=== PATIENT | male | born 1950 | race Caucasian/White ===

== ENCOUNTER 2017-01-28 07:09 | Emergency (ER) | payer MEDICARE ==
[2017-01-28] MEDS ORDERED: MORPHINE SULFATE 4 MG/ML SYRINGE IV STA (07:48)
[2017-01-28] MEDS ORDERED: SODIUM CHLORIDE 0.9% 1,000 ML IV STA ×2 (07:48→10:57)
[2017-01-28] MEDS ORDERED: ACETAMINOPHEN IV (For NPO) 1,000 MG in EMPTY BAG 1 BAG IVPB STA (07:49)
[2017-01-28] MEDS ORDERED: PANTOPRAZOLE 40 MG/10 ML VIAL IVP STA (07:49)
[2017-01-28 08:35] LABS: Basophils % (A) 1 %; CH 34.9; CHCM 35.6; Eosinophils # (A) 0.1 k/uL (0-0.7); Eosinophils % (A) 1 %; HCT 46.8 % (39.0-53.0); HDW 2.62; HGB 16.1 gm/dL (13.0-17.5); Luc # (Auto) 0.25; Luc % (Auto) 4; Lymphocytes # (A) 0.9 k/uL (1.0-4.8); Lymphocytes % (A) 15 %; MCHC 34.5 g/dL (31.0-37.0); MCV 98.5 fL (80.0-100.0); Mean Platelet Volume 7.2; Monocytes # (A) 0.5 k/uL (0-1.0); Monocytes % (A) 9 %; Neutrophils # (A) 4.4 k/uL (1.3-7.7); Neutrophils % (A) 71 %; RBC 4.75 m/uL (4.30-5.90); RDW 13.1 % (11.5-15.5); WBC 6.2 k/uL (3.8-10.6); WBC (Perox) 5.93
--- NOTE | 2017-01-28 08:37 | ED ---
General Adult HPI - General Chief complaint: Shortness of Breath Stated complaint: CHEST PRESSURE, DAVIDE Time Seen by Provider: 01/28/17 07:19 Source: patient, RN notes reviewed, old records reviewed Mode of arrival: wheelchair Limitations: no limitations - History of Present Illness Initial comments: This is a 66-year-old male who ER for evaluation of shortness of breath epigastric Delapena fullness and mild chest pain. Patient has no systemic medical history but does not see or keep up with Drs., patient does admit to drinking 5 beers per day. Patient comes in the ER today for evaluation of bowel pain and constipation. Bloating in his abdomen and anterior abdominal pain. Patient was on his way to see his grandkids when he began to states his pain became very anxious and came emergency room for evaluation. Patient denies recent fevers no nausea vomiting or diarrhea. - Related Data Home Medications Medication Instructions Recorded Confirmed Naproxen Sodium [Aleve] 660 mg PO DAILY PRN 01/28/17 01/28/17 Allergies Allergy/AdvReac Type Severity Reaction Status Date / Time No Known Allergies Allergy Verified 01/28/17 07:52 Review of Systems ROS Statement: Those systems with pertinent positive or pertinent negative responses have been documented in the HPI. ROS Other: All systems not noted in ROS Statement are negative. Past Medical History Additional Past Medical History / Comment(s): diverticulitis History of Any Multi-Drug Resistant Organisms: None Reported Additional Past Surgical History / Comment(s): vasectomy Past Psychological History: Panic Disorder Smoking Status: Never smoker Past Alcohol Use History: Daily Past Drug Use History: None Reported General Exam Limitations: no limitations General appearance: alert, in no apparent distress, anxious Head exam: Present: atraumatic, normocephalic, normal inspection Eye exam: Present: normal appearance, PERRL, EOMI. Absent: scleral icterus, conjunctival injection, periorbital swelling ENT exam: Present: normal exam, mucous membranes moist Neck exam: Present: normal inspection. Absent: tenderness, meningismus, lymphadenopathy Respiratory exam: Present: normal lung sounds bilaterally. Absent: respiratory distress, wheezes, rales, rhonchi, stridor Cardiovascular Exam: Present: normal rhythm, tachycardia, normal heart sounds. Absent: systolic murmur, diastolic murmur, rubs, gallop, clicks GI/Abdominal exam: Present: soft, normal bowel sounds. Absent: distended, tenderness, guarding, rebound, rigid Extremities exam: Present: normal inspection, full ROM, normal capillary refill. Absent: tenderness, pedal edema, joint swelling, calf tenderness Back exam: Present: normal inspection Neurological exam: Present: alert, oriented X3, CN II-XII intact Psychiatric exam: Present: normal affect, normal mood Skin exam: Present: warm, dry, intact, normal color. Absent: rash Course Vital Signs 01/28/17 01/28/17 07:14 10:20 Temperature 97.7 F 97.8 F Pulse Rate 108 H 86 Respiratory 16 18 Rate Blood Pressure 176/94 178/98 O2 Sat by Pulse 98 97 Oximetry - Reevaluation(s) Reevaluation #1: 01/28/17 11:55 Patient remains a mildly distended abdomen, unable to have bowel movement. EKG Findings - EKG Comments: EKG Findings:: EKG shows normal sinus rhythm rate of 93, [place] 164, QRS 112, QTC 467 Medical Decision Making - Medical Decision Making 60 formality ER for evaluation of abdominal pain distention, the patient. No bowel movement a day and a half. Patient is copiously work including CAT scan done which are negative. patient will be discharged home with bowel regimen - Lab Data Result diagrams: 01/28/17 08:15 01/28/17 08:15 Lab Results 01/28/17 01/28/17 01/28/17 Range/Units 08:15 08:15 08:15 WBC 6.2 (3.8-10.6) k/uL RBC 4.75 (4.30-5.90) m/uL Hgb 16.1 (13.0-17.5) gm/dL Hct 46.8 (39.0-53.0) % MCV 98.5 (80.0-100.0) fL MCH 34.0 (25.0-35.0) pg MCHC 34.5 (31.0-37.0) g/dL RDW 13.1 (11.5-15.5) % Plt Count 220 (150-450) k/uL Neutrophils % 71 % Lymphocytes % 15 % Monocytes % 9 % Eosinophils % 1 % Basophils % 1 % Neutrophils # 4.4 (1.3-7.7) k/uL Lymphocytes # 0.9 L (1.0-4.8) k/uL Monocytes # 0.5 (0-1.0) k/uL Eosinophils # 0.1 (0-0.7) k/uL Basophils # 0.0 (0-0.2) k/uL PT (9.0-12.0) sec INR (<1.1) APTT (22.0-30.0) sec D-Dimer (<0.60) mg/L FEU Sodium 143 (137-145) mmol/L Potassium 4.5 (3.5-5.1) mmol/L Chloride 103 (98-107) mmol/L Carbon Dioxide 27 (22-30) mmol/L Anion Gap 13 mmol/L BUN 13 (9-20) mg/dL Creatinine 0.70 (0.66-1.25) mg/dL Est GFR (MDRD) Af Amer >60 (>60 ml/min/1.73 sqM) Est GFR (MDRD) Non-Af >60 (>60 ml/min/1.73 sqM) Glucose 108 H (74-99) mg/dL Plasma Lactic Acid Ronal (0.7-2.0) mmol/L Calcium 9.6 (8.4-10.2) mg/dL Phosphorus 3.1 (2.5-4.5) mg/dL Magnesium 1.8 (1.6-2.3) mg/dL Total Bilirubin 1.2 (0.2-1.3) mg/dL AST 82 H (17-59) U/L ALT 122 H (21-72) U/L Alkaline Phosphatase 97 (38-126) U/L Total Creatine Kinase 145 (55-170) U/L CK-MB (CK-2) 2.1 (0.0-2.4) ng/mL CK-MB (CK-2) Rel Index 1.4 Troponin I <0.012 (0.000-0.034) ng/mL Total Protein 8.3 H (6.3-8.2) g/dL Albumin 4.6 (3.5-5.0) g/dL Lipase 75 (23-300) U/L 01/28/17 01/28/17 Range/Units 08:15 08:15 WBC (3.8-10.6) k/uL RBC (4.30-5.90) m/uL Hgb (13.0-17.5) gm/dL Hct (39.0-53.0) % MCV (80.0-100.0) fL MCH (25.0-35.0) pg MCHC (31.0-37.0) g/dL RDW (11.5-15.5) % Plt Count (150-450) k/uL Neutrophils % % Lymphocytes % % Monocytes % % Eosinophils % % Basophils % % Neutrophils # (1.3-7.7) k/uL Lymphocytes # (1.0-4.8) k/uL Monocytes # (0-1.0) k/uL Eosinophils # (0-0.7) k/uL Basophils # (0-0.2) k/uL PT 10.4 (9.0-12.0) sec INR 1.0 (<1.1) APTT 24.8 (22.0-30.0) sec D-Dimer 1.14 H (<0.60) mg/L FEU Sodium (137-145) mmol/L Potassium (3.5-5.1) mmol/L Chloride (98-107) mmol/L Carbon Dioxide (22-30) mmol/L Anion Gap mmol/L BUN (9-20) mg/dL Creatinine (0.66-1.25) mg/dL Est GFR (MDRD) Af Amer (>60 ml/min/1.73 sqM) Est GFR (MDRD) Non-Af (>60 ml/min/1.73 sqM) Glucose (74-99) mg/dL Plasma Lactic Acid Ronal 1.0 (0.7-2.0) mmol/L Calcium (8.4-10.2) mg/dL Phosphorus (2.5-4.5) mg/dL Magnesium (1.6-2.3) mg/dL Total Bilirubin (0.2-1.3) mg/dL AST (17-59) U/L ALT (21-72) U/L Alkaline Phosphatase (38-126) U/L Total Creatine Kinase (55-170) U/L CK-MB (CK-2) (0.0-2.4) ng/mL CK-MB (CK-2) Rel Index Troponin I (0.000-0.034) ng/mL Total Protein (6.3-8.2) g/dL Albumin (3.5-5.0) g/dL Lipase (23-300) U/L - Radiology Data Radiology results: report reviewed (X-ray abdominal series with KUB is negative , CT a of chest and pelvis is negative, opsonic gallbladder is negative), image reviewed Disposition Clinical Impression: Constipation, Abdominal pain Disposition: HOME SELF-CARE Condition: Good Instructions: Constipation (ED) Referrals: Israel Martinez MD [Primary Care Provider] - 1-2 days
[2017-01-28 08:45] LABS: ALT 122 U/L (21-72); AST 82 U/L (17-59); Alkaline Phosphatase 97 U/L (38-126); Anion Gap 13 mmol/L; Blood Urea Nitrogen 13 mg/dL (9-20); Calcium 9.6 mg/dL (8.4-10.2); Carbon Dioxide 27 mmol/L (22-30); Chloride 103 mmol/L (98-107); Glucose 108 mg/dL (74-99); Magnesium 1.8 mg/dL (1.6-2.3); Non-African American GFR(MDRD) >60 (>60 ml/min/1.73 sqM); Phosphorous 3.1 mg/dL (2.5-4.5); Potassium 4.5 mmol/L (3.5-5.1); Sodium 143 mmol/L (137-145); Total Bilirubin 1.2 mg/dL (0.2-1.3); Total Protein 8.3 g/dL (6.3-8.2)
[2017-01-28 08:50] LABS: Partial Thromboplastin Time 24.8 sec (22.0-30.0); Prothrombin Time 10.4 sec (9.0-12.0)
[2017-01-28 08:55] LABS: Creatine Kinase 145 U/L (55-170)
[2017-01-28] MEDS ORDERED: RX INFO: IV CONTRAST WAS GIVEN 1 EACH MISC MISCELLANE PRN (09:00)
--- NOTE | 2017-01-28 09:08 | XR ---
EXAMINATION TYPE: XR abdomen acute w cxr DATE OF EXAM: 01/28/2017 8:56 AM COMPARISON: NONE HISTORY: Pain TECHNIQUE: Single view of the chest and 2 views of the abdomen are submitted. FINDINGS: Single view of the chest fails demonstrate evidence for acute pulmonary disease. There is no evidence for pneumoperitoneum. The bowel gas pattern is unremarkable as there is air throughout nondilated small and large bowel. No sizeable air fluid levels.No mass effects are seen. No unusual calcifications. IMPRESSION: 1. Unremarkable study.
[2017-01-28 09:09] LABS: Creatine Kinase MB 2.1 ng/mL (0.0-2.4); Troponin I <0.012 ng/mL (0.000-0.034)
[2017-01-28 10:23] VITALS: RESP 18
--- NOTE | 2017-01-28 10:26 | CT ---
EXAMINATION TYPE: CT angio chest DATE OF EXAM: 01/28/2017 10:10 AM COMPARISON: NONE HISTORY: abdominal pain with bloating, sob CT DLP: 2297.7 mGycm CONTRAST: CT chest with contrast and 3D reconstruction with MIP imaging is performed with IV Contrast, patient injected with 100 mL of Omnipaque 350. Contrast-enhanced CT of the chest was performed through the course of the pulmonary arteries with orlando g and mediastinal window settings submitted. 3D reconstruction with MIP imaging was also performed. PULMONARY ARTERIES: There is poor timing of the contrast bolus limiting examination. I do not see vanessa dence for a large central embolus however branch vessels are significantly limited in evaluation. LUNGS: The lungs are clear and free of infiltrate. No evidence for atelectasis. No pulmonary nodule or mass is detected. No pleural effusion. MEDIASTINUM: Thoracic aorta is of normal caliber . The heart is not enlarged. No evidence for media stinal mass. No mediastinal lymph nodes greater than 1cm. HILAR STRUCTURES: No evidence for mass. No hilar lymph nodes greater than 1 cm. UPPER ABDOMEN: There is hepatic steatosis present. IMPRESSION: 1. There is poor timing of the contrast bolus limiting examination. I do not see evidence for a larg e central embolus however branch vessels are significantly limited in evaluation.
--- NOTE | 2017-01-28 10:30 | CT ---
EXAMINATION TYPE: CT abdomen pelvis w con DATE OF EXAM: 01/28/2017 10:10 AM COMPARISON: NONE HISTORY: abdominal pain with bloating, sob CT DLP: 2297.7 mGycm CONTRAST: CT scan of the abdomen and pelvis is performed without Oral Contrast and with IV Contrast, patient in jected with 100 mL of Omnipaque 350. FINDINGS: LUNG BASES-: No visible nodule. No infiltrate. LIVER/GB: No calcified gallstones. No space occupying hepatic lesion. Biliary tree is of normal ca liber. There is evidence of hepatic steatosis. PANCREAS: No inflammation. No distinct mass. SPLEEN: No splenic enlargement. No lesion seen. ADRENALS: No nodule. No thickening. KIDNEYS/BLADDER: There is a solid mass mid to upper pole left kidney measuring 4.7 x 4.6 x 5.0 cm com patible with renal cell carcinoma until proven otherwise. No additional solid mass is identified. No evidence for regional adenopathy or tumor thrombus within the renal vein. No hydronephrosis or nephro lithiasis. BOWEL: Normal appendix. Normal bowel caliber. No inflammation. Sigmoid diverticulosis without diver ticulitis. GENITAL ORGANS: No gross abnormality. LYMPH NODES: No greater than 1cm abdominal or pelvic lymph nodes are appreciated. AORTA: No significant abnormality. OSSEOUS STRUCTURES: No significant abnormality is seen. OTHER: No significant additional abnormality is seen. IMPRESSION: 1. Left sided renal cell carcinoma until proven otherwise as noted above. Urology consult recommended . 2. Moderate sigmoid diverticulosis without diverticulitis.
[2017-01-28] MEDS ORDERED: KETOROLAC 30 MG/ML 1 ML VIAL IVP STA (10:57)
[2017-01-28] MEDS ORDERED: MORPHINE SULFATE 4 MG/ML SYRINGE IVP STA (10:57)
--- NOTE | 2017-01-28 11:52 | US ---
EXAMINATION TYPE: US gallbladder DATE OF EXAM: 01/28/2017 11:20 AM COMPARISON: NONE CLINICAL HISTORY: Pain. SOB, ABD pressure, constipation EXAM MEASUREMENTS: Liver Length: 19.3 cm Gallbladder Wall: 0.3 cm CBD: 0.4 cm Right Kidney: 13.3 x 5.5 x 5.6 cm Findings: Pancreas: obscured by overlying bowel content Liver: enlarged, attenuating, difficult to penetrate Gallbladder: no evidence of stones as visualized Evidence for sonographic Easton's sign: no CBD: appears wnl Right Kidney: no evidence of hydronephrosis IMPRESSION: 1. Hepatomegaly with heterogeneous pattern of liver is nonspecific could be seen with fatty infiltrat ion or hepatitis. This may obscure underlying mass. 2. No evidence of gallstones
[2017-01-28] MEDS ORDERED: MAGNESIUM CITRATE 296 ML BOTTLE PO ONE (11:55)
[2017-01-28] MEDS ORDERED: SENNOSIDES-DOCUSATE SODIUM 1 EACH TAB PO STA (11:55)
[2017-01-28 13:24] VITALS: BP 194/93; PULSE 77; TEMP 97.9
== END 2017-01-28 13:28 | disposition home or self-care (01) ==
LOC: EC 07:09
DX: K59.00 Constipation, unspecified (principal); R07.9 Chest pain, unspecified; R06.02 Shortness of breath
CPT/HCPCS: 99285 ×2; 96365 ×2; 96375 ×4; 96376 ×2; 96361 ×5; 36415; 93005; 85379; 80053; 82550; 82553; 83605; 83690; 83735; 84100; 84484; 85025; 85610; 85730; 74022; 76705; 71275; 74177; J2270; Q9967; J1885; J0131; C9113

== ENCOUNTER → 2021-12-04 | Outpatient (CLI) | payer MEDICARE ==
--- NOTE | 2021-12-04 14:56 | CT ---
EXAMINATION TYPE: CT abdomen pelvis wo con DATE OF EXAM: 12/04/2021 HISTORY: History of left renal cancer and nephrectomy. CT DLP: 1075.2 mGycm. Automated Exposure Control for Dose Reduction was Utilized. TECHNIQUE: CT scan of the abdomen and pelvis is performed without oral or IV contrast. COMPARISON: CT abdomen and pelvis January 28, 2017 FINDINGS: Within the limitations of a non-contrast study, the following observations are made. LUNG BASES: Mild linear scarring in the left lung base is redemonstrated. LIVER/GB: Interval increase in number of dependent small gallstones. No Surrounding inflammatory jorge ge. Visualized liver remains heterogeneously hypodense suggesting diffuse fatty infiltration. PANCREAS: No significant abnormality is seen. SPLEEN: No significant abnormality is seen. ADRENALS: No significant abnormality is seen. KIDNEYS: Left kidney is surgically absent current exam. No obvious right renal mass or calculus on no ncontrast CT. No right-sided hydronephrosis. BOWEL: Diverticula in the colon greatest in the left and sigmoid colon. No CT evidence for acute dive rticulitis. GENITAL ORGANS: Enlarged prostate consistent with BPH. Central calcifications are present. LYMPH NODES: No new greater than 1cm abdominal or pelvic lymph nodes are appreciated. OSSEOUS STRUCTURES: [id number] multilevel spine. [id number] multilevel disc space narro wing. Multilevel vacuum disc phenomenon in the mid to lower lumbar spine along with multilevel facet arthropathy. OTHER: Moderate calcified plaque of the aorta extends into branch vessels. IMPRESSION: Left nephrectomy changes now present. No new suspicious mass or adenopathy on noncontrast CT to suggest neoplastic recurrence..
== END | disposition home or self-care (01) ==
LOC: RADCTMAIN 10:35
PROVIDERS: ATTEND Urology
DX: Z08 Encounter for follow-up examination after completed treatment for malignant neoplasm (principal); K57.30 Diverticulosis of large intestine without perforation or abscess without bleeding; Z85.528 Personal history of other malignant neoplasm of kidney
CPT/HCPCS: 74176